=== PATIENT | male | born 1950 | race Caucasian/White ===

== ENCOUNTER 2022-11-11 08:32 | Day surgery (SDC) | payer MEDICARE, OTHER ==
[~2022-11-11] VITALS: Ht 177.8 cm; Wt 65.8 kg
[~2022-11-11 08:32] MED LIST: ADVAIR DISK1 INH; ALBUTEROL2 MG PO; ALL DAY10 MG PO; ATENOLOL25 MG PO; BC HEADACH1 PO; BENADRYL 25MG C25 MG PO; CELEBREX200 M1 PO; CYCLOBENZAPRINE10 MG PO; FLEXERIL5 M1 PO; GABAPENTIN300 M2 PO; KETOROLAC10 MG PO; LIPITOR40 M1 PO; NEURONTIN300 MG PO; NITROGLYCERIN0.4 MG; OMEPRAZOLE20 MG PO; ZESTRIL10 M1 PO
[2022-11-11 14:36] VITALS: BP 130/82
== END 2022-11-11 11:36 | disposition home or self-care (01) ==
LOC: ENDO 08:32 → ORM 09:40 → ENDO 11:36 → ORM 11:50
PROVIDERS: ATTEND Surgery
PROC: 0DBM8ZX Excision of Descending Colon, Via Natural or Artificial Opening Endoscopic, Diagnostic (ICD-10-PCS; principal; 2022-11-11)
DX: Z12.11 Encounter for screening for malignant neoplasm of colon (principal); D12.4 Benign neoplasm of descending colon; K57.30 Diverticulosis of large intestine without perforation or abscess without bleeding; K64.8 Other hemorrhoids; I10 Essential (primary) hypertension; J44.9 Chronic obstructive pulmonary disease, unspecified; Z86.010 Personal history of colon polyps; Z80.0 Family history of malignant neoplasm of digestive organs